=== PATIENT | male | born 1935 | race Caucasian/White ===

== ENCOUNTER 2025-05-31 14:13 | Emergency (ER) | payer MEDICARE, SELFPAY ==
[2025-05-31 14:26] VITALS: BP 175/68; PULSE 64; RESP 16; TEMP 36.6; O2SAT 95
--- NOTE | 2025-05-31 14:43 | ED.GENADUL_ITS ---
Discharge Plan Disposition Patient Disposition: Home Discharge Details Clinical Impression: COVID-19 virus infection Primary Care Provider: Maciel Machado ED Provider: Corky Molina Discharge Instructions Additional Instructions: You were seen in the emergency department for your COVID exposure. You likely have recently had COVID. As we discussed if you develop shortness of breath chest pain nausea vomiting does not stop please return to the emergency depar tment. Otherwise please follow-up as needed primary care provider. Stand Alone Forms: Portal Information HPI General Date/Time Provider Initiated Documentation: 05/31/25 14:22 . HPI Narrative: MDM This is an overall very well-appearing normothermic and not tachycardic 89-year-old male with recent COVID infection and family curious for testing for which patient was swabbed in the emergency department prior to discharge with empiric trial of expectant outpatient management. Patient clear lungs and was not hypoxic so no indication for dexamethasone. In the absence of fever hypoxia and chest pain my suspicion for superimposed bacterial pneumonia was low so I did not feel patient required a chest x-ray. Patient has not been vomiting to suggest increased risk for acute electrolyte abnormality so I did not feel he required assessment of his labs. In the absence of chest pain I was not suspicious for PE. Furthermore patient was neither tachycardic nor hypoxic. Patient reported that he had been eating and drinking well. His significant other had recently developed respiratory symptoms and she was in the emergency department. Patient I discussed that if he developed any shortness of breath chest pain nausea vomiting did not stop or if he had any other concerns he s hould return to the emergency department. Patient understood his return indications and was discharged with an empiric trial of expectant outpatient management. HPI The patient presents for evaluation of suspected COVID-19. He reports feeling well overall, with no respiratory distress or chest discomfort. He has not experienced any episodes of vomiting. However, he did have a significant episode of chills yesterday. He has not taken Tylenol [facility]. he reported that his symptoms are improved compared to last week. Exam General: Well-appearing in no acute distress speaking in complete sentences. Head: Normocephalic, atraumatic. Eye: Extraocular eye movements intact. No conjunctival injection. No scleral icterus. Ear, nose, mouth, throat: Grossly normal inspection. Normal voice, handling secretions normally. Neck: Trachea midline. Cardiovascular: Well-perfused distal extremities. Respiratory: Nonlabored respiration. Clear lungs bilaterally. Gastrointestinal: Nondistended abdomen. Musculoskeletal: No edema. Moving all 4 extremities spontaneously. Skin: Normal for age and race, grossly normal temperature and turgor. No acute rash. Neurologic: Alert and appropriate, no apparent acute deficits. Related Data Allergies Allergy/AdvReac Type Severity Reaction Status Date / Time No Known Allergies Allergy Unverified 05/31/25 14:27 General Stated Complaint: RespSymp RENATE: 4 Course Vital Signs Vital signs: Vital Signs Temperature 36.6 C 05/31/25 14:26 Pulse 64 05/31/25 14:26 Respiratory Rate 16 05/31/25 14:26 Blood Pressure 175/68 H 05/31/25 14:26 Pulse Oximetry 95 05/31/25 14:26 Temperature 36.6 C 05/31/25 14:26 Temperature Source Tympanic 05/31/25 14:26 Pulse 64 05/31/25 14:26 Respiratory Rate 16 05/31/25 14:26 Blood Pressure 175/68 H 05/31/25 14:26 Blood Pressure Position Sitting 05/31/25 14:26 Pulse Oximetry 95 05/31/25 14:26 Oxygen Delivery Method Room Air 05/31/25 14:26 Oxygen Flow Rate 0 05/31/25 14:26 Pain Level 0 05/31/25 14:26 PFSH All Active Problems (Updated 05/31/25 @ 14:48 by Corky Molina MD) COVID-19 virus infection (Acute) Social History Smoking/Tobacco Use Status: Never Smoking risk assessment performed?: Yes Alcohol Intake: never Drug use: Never
[2025-05-31 15:43] LABS: RSV PCR Negative (Negative)
[2025-05-31 15:52] LABS: COVID-19 PCR Positive (Negative)
== END 2025-05-31 15:15 | disposition home or self-care (01) ==
LOC: ER 15:45
PROVIDERS: Student in an Organized Health Care Education/Training Program; Emergency Provider Emergency Medicine; PCP Internal Medicine Geriatric Medicine
DX: U07.1 COVID-19 (principal)
CPT/HCPCS: 99283; 99282; 87637